=== PATIENT | male | born 1970 | race Caucasian/White ===

== ENCOUNTER 2021-12-04 12:15 | Emergency (ER) | payer MEDICARE, SELFPAY ==
[2021-12-04 12:25] VITALS: BP 180/109; PULSE 95; RESP 20; TEMP 36.4; O2SAT 100
--- NOTE | 2021-12-04 12:27 | ED.GENADULT ---
HPI - General Adult General Chief complaint: Unspecified Stated complaint: needs RX refills (dr johnnie) Time Seen by Provider: 12/04/21 12:27 Source: patient and RN notes reviewed History of Present Illness HPI narrative: Patient is a 51-year-old male who presents the urgent care requesting medication refills. States that his doctor passed suddenly and the nurse practitioner in the office is refusing to refill his chronic pain medications. It is noted in patient's pharmacy that several medications have recently been refilled within the last few days. Patient states he also needs treatment for flareup with his ulcerative colitis. Patient states he typically takes clindamycin and metronidazole and occasional steroids. No other acute complaints. Denies of any new recent changes in health history. No acute distress noted. Patient read the plan of care. Some parts of this dictation were generated by voice recognition software and may contain typographical and/or grammatical inaccuracies. Related Data Home Medications Medication Instructions Recorded Confirmed albuterol sulfate 90 mcg/actuation 1 puff INHALATION Q4H PRN 01/02/20 12/04/21 aerosol inhaler budesonide-formoterol HFA 160 2 puff INHALATION Q12H 01/02/20 12/04/21 mcg-4.5 mcg/actuation aerosol inhaler dexamethasone 4 mg tablet 4 mg PO BID 01/02/20 12/04/21 hydrocodone 5 mg-acetaminophen 325 1 tablet PO QID PRN tablet 01/02/20 12/04/21 mg tablet insulin glargine 100 unit/mL (3 20 unit SUB-Q DAILY 01/02/20 12/04/21 mL) subcutaneous pen lisinopril 20 mg tablet 20 mg PO DAILY 01/02/20 12/04/21 carvedilol 25 mg PO TID 12/04/21 12/04/21 dicyclomine 10 mg PO DAILY 12/04/21 12/04/21 Allergies Allergy/AdvReac Type Severity Reaction Status Date / Time ibuprofen AdvReac Severe Makes his Verified 12/04/21 12:42 Ulcerative colitis worse acetaminophen AdvReac Intermediate upset Verified 12/04/21 12:42 stomach Review of Systems Review of Systems: CONSTITUTIONAL: Denies fever, chills, or sweats. EYES: Denies visual changes, redness, or discharge. ENT: Denies rhinorrhea, congestion, sore throat, or otalgia. CARDIOVASCULAR: Denies chest pain, palpitations, or edema. RESPIRATORY: Denies cough or dyspnea. GASTROINTESTINAL: Reports of acute on chronic left lower abdominal pain with intermittent loose stools and nausea GENITOURINARY: Denies dysuria or hematuria. SKIN: Denies rash or itching. MUSCULOSKELETAL: Denies back pain, joint pain, or myalgia. NEUROLOGIC: Denies headache, numbness, or weakness. All other systems reviewed are negative, except as documented in HPI. [facility] Past Medical History Medical History Acute Crohn's disease Cholecystectomy planned Colonoscopy planned Diabetes Hyperlipidemia Hypertension Surgical History Surgical History (Updated 01/02/20 @ 14:01 by Aysha Garber [facility]) H/O hand surgery Social History Social History Smoking status: Never smoker Alcohol intake: never Comments At the time of my signature, I reviewed and agree with the nursing past medical, surgical, social, and family history. There is no relevant family history pertinent to the patient complaint. Exam Narrative: GENERAL: This is a well-nourished, well-developed patient, in no apparent distress. HEAD: normocephalic, atraumatic. EYES: PERRL. Sclera clear/white. Vision is grossly intact. EARS: External ears normal NOSE: External nose normal with no obvious nasal discharge, nares without redness, no rhinorrhea. THROAT: Mucous membranes moist NECK: Neck supple GASTROINTESTINAL: Abdomen soft, non-tender, nondistended. Bowel sounds are active. SKIN: warm, intact with no suspicious lesions or rash, good texture and turgor. NEURO: awake, alert, and oriented to person, place and time. There were no obvious focal neurologic abnorma
[2021-12-04 12:42] VITALS: BP 180/109; PULSE 95; RESP 20; TEMP 36.4; O2SAT 100
== END 2021-12-04 12:58 | disposition home or self-care (01) ==
PROVIDERS: Emergency Provider Nurse Practitioner Family
DX: Z76.0 Encounter for issue of repeat prescription (principal); K51.90 Ulcerative colitis, unspecified, without complications; E11.9 Type 2 diabetes mellitus without complications; E78.5 Hyperlipidemia, unspecified; I10 Essential (primary) hypertension; Z79.4 Long term (current) use of insulin
CPT/HCPCS: 99211; G0463